=== PATIENT | female | born 1990 | race Caucasian/White ===

== ENCOUNTER → 2021-11-28 10:44 | Outpatient (CLI) | payer OTHER, SELFPAY ==
--- NOTE | 2021-11-28 | DI.US.S_ITS ---
PROCEDURE: US OB >= 14 WEEKS FETUS INDICATIONS: 20 WEEK ANATOMY SCAN OUTSIDE/PRIOR DATING DATA: Last menstrual period (LMP): July 18, 2021. LMP-based estimated date of delivery (AGUSTIN): April 24, 2022. First dating scan (location): [facility]. Estimated date of delivery (AGUSTIN) from first dating scan: April 09, 2022. TECHNIQUE: Real-time scanning was performed of the fetus, with image documentation and biometric measurements. COMPARISON: None. FINDINGS: General: A single living intrauterine gestation is present. Presentation: Transverse maternal right Placenta: Placental position is anterior , without previa. Amniotic fluid index: 10.2 cm, normal range is 5-24 cm. Single deepest vertical pocket is 3.8 cm. heart rate: 145 beats per minute. Maternal cervical canal: 6.5 cm long. Normal lower limit is 2.5 cm. biometrics: Biparietal diameter: 5 cm Head circumference: 19.1 cm Abdominal circumference: 15.5 cm Femur length: 3.5 cm Composite gestational age from present scan: 20 weeks, 1 day Estimated weight: 390 g +/-58 g Anatomic survey: Neuro: Ventricles are non-dilated at less than 10 mm. Cisterna magna is normal at 3-11 mm. Cerebellum is normal in size and morphology. Nuchal skin fold: Normal at less than 6 mm between 14-21 weeks gestational age. Face: Not well seen. Spine: Not well seen. Heart: Not well seen. Diaphragm: Diaphragm is intact. Stomach: Left-sided stomach is present. Kidneys: No hydronephrosis. Normal is less than 5 mm in 2nd trimester, less than 7 mm in 3rd trimester. Cord: 3-vessel cord has orthotopic insertion. Bladder: Normal in size. Extremities: All 4 extremities identified. IMPRESSION: 1. Live single intrauterine gestation as detailed above. Some portions of the anatomy are not well seen. Consider short-term follow-up. We strive to produce accurate, complete, and clear reports of imaging services. To assist us in improving patient care, this report was composed using standard report templates and voice recognition software. Therefore, it may contain abnormal punctuation, insertions and/or omissions. Occasional wrong-word or sound-alike substitutions may occur. Though we review the report and make efforts to correct it, we do recommend that the report be read carefully in proper context to recognize any text inaccuracies. Dictated by: Renato Brumfield M.D. on 11/28/2021 at 13:31 Approved by: Renato Brumfield M.D. on 11/28/2021 at 13:35
== END ==
PROVIDERS: Referring Provider Nurse Practitioner Obstetrics & Gynecology; Visit Provider Nurse Practitioner Obstetrics & Gynecology
DX: Z34.92 Encounter for supervision of normal pregnancy, unspecified, second trimester (principal); Z3A.20 20 weeks gestation of pregnancy
CPT/HCPCS: 76811

== ENCOUNTER → 2021-12-14 10:13 | Outpatient (CLI) | payer OTHER, SELFPAY ==
--- NOTE | 2021-12-14 | DI.US.S_ITS ---
PROCEDURE: US OB FOLLOW UP INDICATIONS: RE-EVALUATE OUTSIDE/PRIOR DATING DATA: Last menstrual period (LMP): 07/18/2021 LMP-based estimated date of delivery (AGUSTIN): 04/24/2022. First dating scan (date and location): 11/28/2021. Estimated date of delivery (AGUSTIN) from first dating scan: 04/09/2022. TECHNIQUE: Real-time scanning was performed of the fetus, with image documentation and biometric measurements. COMPARISON: [facility], OB >= 14 WEEKS FETUS, 11/28/2021, 10:55. FINDINGS: General: A single living intrauterine gestation is present. Presentation: Transverse. Placenta: Placental position is anterior , without previa. Amniotic fluid index: 14.6 cm, normal range is 5-24 cm. heart rate: 133 beats per minute. Maternal cervical canal: 6.3 cm long. Normal lower limit is 2.5 cm. Clinically estimated gestational age: 23 weeks 3 days Normal appearance of the four-chamber heart, cardiac outflow tracts, face and spine. IMPRESSION: Single living IUP redemonstrated and today's exam demonstrating normal appearance of the heart, face and spine. We strive to produce accurate, complete, and clear reports of imaging services. To assist us in improving patient care, this report was composed using standard report templates and voice recognition software. Therefore, it may contain abnormal punctuation, insertions and/or omissions. Occasional wrong-word or sound-alike substitutions may occur. Though we review the report and make efforts to correct it, we do recommend that the report be read carefully in proper context to recognize any text inaccuracies. Dictated by: Bienvenido Lin [facility] Interpreted: Ronny Millan MD on 12/14/2021 at 13:36 Approved by: Ronny Millan M.D. on 12/14/2021 at 14:11
== END ==
PROVIDERS: Referring Provider Nurse Practitioner Obstetrics & Gynecology; Visit Provider Nurse Practitioner Obstetrics & Gynecology
DX: Z36.2 Encounter for other antenatal screening follow-up (principal); Z3A.23 23 weeks gestation of pregnancy
CPT/HCPCS: 76816

== ENCOUNTER → 2022-03-21 19:21 | Outpatient (ROUT) | payer OTHER, SELFPAY | PROVIDERS: Visit Provider Nurse Practitioner Obstetrics & Gynecology | DX: Z34.93 Encounter for supervision of normal pregnancy, unspecified, third trimester (principal); Z36.85 Encounter for antenatal screening for Streptococcus B; Z3A.36 36 weeks gestation of pregnancy | CPT/HCPCS: 87081 ==

== ENCOUNTER 2022-04-09 21:13 | Inpatient (IN) | payer OTHER, SELFPAY ==
--- NOTE | 2022-04-09 21:18 | P.HPOB_ITS ---
OB HPI Date/Time Date of admission: 04/09/22 Date Patient Seen: 04/09/22 Time Patient Seen: 21:18 History of Present Condition Chief complaint: : 2 Para: 1 Estimated Date of Delivery: 04/16/22 Estimated Gestational Age (weeks): 39.0 Narrative: Siena Tse is a 31 year old female @ 39wks 0 days by 10 wk US who presents for evaluation of labor. Contractions started this afternoon and stejonny nicolette progressed in frequency and intensity, now breathing through strong contractions every 3-4 minutes. Had some blood in her discharge earlier this evening. No LOF. care complicated by Fe deficiency anemia for which she received IV iron. Desires low intervention . is present and supportive. Indications Other reason(s) for admission: Term Labor History of Present care: good care, initiated at week # (10), number of visits (9) and pounds weight gain (20) Dating criteria: based on 1st trimester US only Ultrasounds: normal mid trimester US Obstetrical complications: other (anemia) Medical complications: none Preadmission Labs Blood type: A (+) positive -: Antibody screen: negative, GBS status: negative, HBsAG: negative, HIV: negative and RPR/VDLR: negative -: Chlamydia screen: not detected and Gonorrhea screen: not detected -: Rubella: immune and Varicella: immune HCT: 31.1 HCAB: negative PAP: Normal Cell-free DNA: Negative, male 1 hr GTT: 86 Prior (ies) History: 05/16/2016: VAVD @ [id number], epidural, female, 8# 14 oz, traumatic Evaluation Evaluation Baseline heart rate: 120 Variability: Moderate (11-25) monitor accelerations: Absent Monitor Decelerations: Absent Contraction Frequency (minutes): 3 Uterine Contraction Intensity: Strong/Firm Status: Category l Dilation (cm): 7 Effacement (%): 100 Position of cervix: mid Consistency: soft Comments: BBOW PFSH Medical History (Updated 04/09/22 @ 22:47 by Karyn Miranda CNM) Anxiety Biliary colic Family History (Updated 04/09/22 @ 22:48 by Karyn Miranda CNM) Mother Hypothyroid Social History (Updated 04/09/22 @ 22:48 by JENNYFER Brock marital status: household members: spouse and children lives independently: No caregiver/support person: No Meds Home Medications and Allergies Home Medications Medication Instructions Recorded Confirmed Type citalopram 10 mg tablet tab 04/09/22 History Allergies Allergy/AdvReac Type Severity Reaction Status Date / Time No Known Drug Allergies Allergy Verified 02/26/22 12:01 Review of Systems Review of Systems ROS: Yes All systems reviewed with the patient and are negative except as otherwise documented OB Exam Resp Effort & Inspection: normal respiratory effort Auscultation: clear to auscultation bilaterally Cardio Rate: regular rate Rhythm: regular rhythm Heart Sounds: S1 normal and S2 normal Presentation: vertex Objective Labs Result Diagrams: 04/09/22 21:50 Assessment and Plan Assessment and Plan Assessment and Plan narrative: Term primipara Active labor No indication for GBS prophylaxis Anemia Cat I FHR P: Admit, routine orders w/ continuous labor support. May switch to IA. Reassess in 4 hours or sooner, PRN.
[2022-04-09 22:00] LABS: COVID19 -Nasal RAPID Negative (Negative)
[2022-04-09] MEDS: LACTATED RINGERS 1,000 ML 100 ML IV ×2 (22:00→23:22)
[2022-04-09 22:10] LABS: Add Manual Diff / Slide Review NO; Basophils Absolute Auto 100 /uL (0-100); Basophils Percent Auto 0.3 % (0-2); Eosinophils Absolute Auto 100 /uL (0-450); Eosinophils Percent Auto 0.8 % (2-4); Hematocrit 37.2 % (36-46); Hemoglobin 12.7 g/dL (12.0-16.0); Lymphocytes Absolute Auto 3100 /uL (1100-4500); Lymphocytes Percent Auto 18.7 % (25-40); Mean Corpuscular HGB Conc 34.1 % (30-36); Mean Corpuscular Hemoglobin 28.8 PG (26-34); Mean Corpuscular Volume 84.6 fL (80-100); Monocytes Absolute Auto 1300 /uL (0-900); Monocytes Percent Auto 7.7 % (3-14); Neutrophils Absolute Auto 12100 /uL (1500-7000); Neutrophils Percent Auto 72.5 % (50-75); Platelet Count 198 X10^3/uL (150-400); Red Cell Distribution Width 23.8 % (11.6-14.8); White Blood Cell Count 16.6 X10^3/uL (4.5-11.0)
[2022-04-09 23:13] LABS: Anisocytosis 3+
[2022-04-10] MEDS: ONDANSETRON 4 MG/2 ML INJ IV (03:05)
--- NOTE | 2022-04-10 05:02 | P.PCNOB_ITS ---
Events: Meconium Stained Fluid Labor & Delivery Delivery date: 04/10/22 Intrapartal Events: None Cervical ripening method: none Induction method: none Delivery monitor: external FHT and external uterine Route of delivery: Episiotomy description: None L&D Laceration Description: Perineal - 1st Degree Delivery repair: chromic (3.0) Estimated blood loss (mL): 50 Quantitative Blood Loss: 50 Anesthesia Type: Epidural Narrative: Patient labored well with an epidural. SROM for thick meconium stained fluid at 0304. Upon routine exam was found to be C/C/+2. Patient pushed well with coaching and encouragement. RT was called to standby for the . NSVB of a vigorous baby girl in boy position. Sommersaulted through a single loose nuchal cord. The shoulders required manual reduction of th eposterior arm for delivery with 90 seconds between delivery of head and delivery of the body. was placed on maternal abdomen for drying and skin to skin. Apgars 8/9. 30units of pitocin in 500ml LR was started at 250mL/hr for AMTSL. After cessation of pulsation, the cord was double clamped by CNM and cut by FOB. Cord blood sample was collected. Gentle cord traction and single maternal push led to spontaneous, Schultze delivery of an apparently intact placenta, membranes and 3VC. Fundus immediately firm and bleeding minimal. Inspection revealed a 1st degree perineal laceration, repaired with 3.0 chromic in the usual fashion under adequate epidural anesthesia. QBL 50mL. Both mother and baby stable and skin to skin as I left the room. [place] Baby 1: gender: Male Presentation: vertex Position: Right Occiput Anterior Placenta delivery description: Spontaneous Cord Vessel Description: 3 Vessels, Nuchal Cord and Loose score (1 min): 8 score (5 min): 9 weight: 4.143 kg Plan for aftercare: Routine care
[2022-04-10] MEDS: KETOROLAC 30 MG/ML VIAL IV (07:24)
[2022-04-10] MEDS: ACETAMINOPHEN 325 MG TABLET 650 MG PO ×2 (14:08→21:52)
[2022-04-10] MEDS: IBUPROFEN 600 MG TABLET PO ×2 (14:08→21:52)
--- NOTE | 2022-04-10 21:01 | PM.OBPN.1 ---
Subjective - OB Subjective Narrative: Day of delivery s/p NSVB with 1st degree perineal laceration. Was unable to void for 6 hours after with bladder scan revealing 1L urine. Colunga catheter was placed with plan to remain in for 12 hours. Ambulating and independently. Tolerating a general diet. Pain is minimal and well controlled w/ PO medication. Bleeding is moderate, without clots. Date Patient Seen: 04/10/22 Time Patient Seen: 21:04 Exam Vital Signs (past 8 hours): BP 94/51mmHg, HR 83bpm, T 99.1F Temporal Other: Fundus firm @ U, lochia light to moderate, no clots. Perineum well approximated. Objective Labs Result Diagrams: 04/09/22 21:50 Labs: Laboratory Results - last 24 hr 04/09/22 04/09/22 04/09/22 21:40 21:50 21:50 WBC 16.6 H RBC 4.40 Hgb 12.7 Hct 37.2 MCV 84.6 MCH 28.8 MCHC 34.1 RDW 23.8 H Plt Count 198 Neut % (Auto) 72.5 Lymph % (Auto) 18.7 L [place] % (Auto) 7.7 Eos % (Auto) 0.8 L Baso % (Auto) 0.3 Neut # (Auto) 61378 H Lymph # (Auto) 3100 [place] # (Auto) 1300 H Eos # (Auto) 100 Baso # (Auto) 100 RBC Morphology See below Anisocytosis 3+ H SARS-CoV-2 (PCR) Negative Blood Type A Positive Antibody Screen Negative Assessment & Plan Assessment and Plan (1) First degree perineal laceration during delivery: Start date: 04/10/22 Status: Acute (2) Urinary retention: Start date: 04/10/22 Status: Acute Plan day: 1 plan OB: routine care Comments: D/C Colunga after 12 hours and monitor voiding, per protocol Time Spent With Patient Time: Total time spent is greater than 50% in coordination of care (as documented) at patient's floor/unit and/or counseling patient: Time with patient: 15-24 minutes
[2022-04-10] MEDS: CITALOPRAM 10 MG TABLET PO (21:20)
[2022-04-11] MEDS: IBUPROFEN 600 MG TABLET PO (05:38)
[2022-04-11] MEDS: ACETAMINOPHEN 325 MG TABLET 650 MG PO (05:39)
--- NOTE | 2022-04-11 07:59 | P.DS_ITS ---
Discharge Providers Provider Date of admission: 04/09/22 21:13 Discharge Date: 04/11/22 Consults: 04/11/22 04:40 Consult to Business Services Sales Agent Routine Comment: Discharge provider: Karyn Miranda CNM Summary Hospital Course Date Patient Seen: 04/11/22 Time Patient Seen: 07:59 Diagnoses: Normal vaginal w/ 1st degree perineal laceration Urinary retention, resolved Hospital Course: PPD1 s/p NSVB w/ 1st degree perinel laceration: Initial urinary retention managed with Colunga catheter x 12 hours, patient has voided x3 since removal. Now voiding, ambulating and independently. Tolerating a general diet. Minimal pain, well controlled w/ PO medication. Vaginal bleeding is small without clots. remains present and supportive. Both are eager for discharge to home today, feeling ready to take their son home. Peripartum Data Infant Delivery Method: Natural Vaginal Laceration Description: Perineal - 1st Degree Episiotomy description: None Procedures: O70.0 complications: none Discharge Diagnosis (1) First degree perineal laceration during delivery: Status: Acute Problem Details: routine course (2) Urinary retention: Status: Acute Problem Details: resolved Status at Discharge Overall status at discharge: patient is progressing back to baseline Time Spent with Patient Time attestation: Total time spent providing and/or coordinating discharge services: Time spent: Less than 30 minutes Specific discharge activities: routine teaching Objective Labs Result Diagrams: 04/09/22 21:50 Exam Vital Signs (past 8 hours): BP 112/73mmhg, HR 82bpm, RR 16/min, T 97.1F Temporal Other: Fundus firm @ U-2, lochia scant, perineum well approximated. Discharge Plan Discharge Plan Patient Disposition: Home Discharge orders & Medications Prescriptions: New ibuprofen 600 mg Tablet 600 mg PO Q6HR PRN (Reason: Pain, Mild (1-3)) 14 Days Qty: 60 0RF Continued citalopram 10 mg tablet Label Comments: Take 1 tablet By Mouth once a day Diet/Activity/Treatments Diet: Diet as Tolerated Activity: pelvic rest x 6 weeks Skin/Wound/Dressing Care Report to your healthcare provider any signs of infection, such as:: chills, fever, increased pain, unusual drainage and unusual redness Visit Report/Discharge Packet Instructions: Depression
[2022-04-11 08:35] VITALS: BP 112/72
[2022-04-11] MEDS: DERMOPLAST SPRAY 20% 60 ML 1 SPRAY TOP (09:04)
--- NOTE | 2022-04-11 09:33 | PM.OBPNLAB ---
Date/Time Date Patient Seen: 04/11/22 Time Patient Seen: 09:33 Pain Control Pain control: tolerating well Comments: Pt able to sleep intermittently through the night. Last BP 149/93. FHR cat 1. Reports mild PINEDA which feels typical for her, minimal relief with tylenol. Mild nausea but able to tolerate PO this morning. Cervidil removed 0900. Cervical exam 0cm/40%/-3. Discussed need for cytotec, orders placed, reassess in 8 hrs. VS: BP 149/93mmHg, HR 78bpm, RR 18/min, T 35.8C Temporal, SpO2 97% on RA Pelvic Exam Dilation (cm): 0 Effacement (%): 40 station: -3 Amniotic membrane status: Intact Contractions Pitocin rate (mU/min): 0 Contraction intensity: Strong/Firm Status status: Category l
[2022-04-11 10:07] VITALS: BP 110/56; PULSE 69; RESP 16; TEMP 36.3
== END 2022-04-11 12:15 | disposition home or self-care (01) | DRG 807 ==
PROVIDERS: Admitting Provider Nurse Practitioner Obstetrics & Gynecology; Referring Provider Nurse Practitioner Obstetrics & Gynecology; Visit Provider Nurse Practitioner Obstetrics & Gynecology
DX: O99.02 Anemia complicating childbirth (principal); Z37.0 Single live birth; Z3A.39 39 weeks gestation of pregnancy; D50.9 Iron deficiency anemia, unspecified; O70.0 First degree perineal laceration during delivery; O69.81X0 Labor and delivery complicated by cord around neck, without compression, not applicable or unspecified; O77.0 Labor and delivery complicated by meconium in amniotic fluid; R33.9 Retention of urine, unspecified
CPT/HCPCS: 01967; 36415; 59050; 85025; 86850; 86900; 86901; 87635; C9803; G0379; J1885; J2405

== ENCOUNTER 2023-01-09 18:37 | Emergency (ER) | payer OTHER, SELFPAY ==
[2023-01-09 18:42] VITALS: BP 121/91; PULSE 67; RESP 18; TEMP 36.9; O2SAT 98; BMI 25.0
--- NOTE | 2023-01-09 19:33 | ED.PSYCH ---
HPI - Psych General Chief Complaint: Psychiatric Symptoms Stated Complaint: SUICIDAL THOUGHTS Time Seen by Provider: 01/09/23 19:19 Source: patient Mode of arrival: Ambulatory History of Present Illness HPI Narrative: 32-year-old female nonsmoker with history of anxiety and depression presents for evaluation of increasing anxiety, depression and suicidal thoughts. She states she primarily is triggered by her and feels anger towards him and very much unsupported by him. She states that he tells her that she should be stronger than she is and should not be so weak as to require assistance and should just be able to figure out her problems. She does have history of prior suicidal ideation and when she was a teenager was involved in self-harm. She denies street drugs but does use occasional alcohol. She has had some exposure to a mental health provider in the community and had been taking Celexa but no longer does Related Data Home Medications Medication Instructions Recorded Confirmed citalopram 10 mg tablet tab 04/09/22 Allergies Allergy/AdvReac Type Severity Reaction Status Date / Time No Known Drug Allergies Allergy Verified 02/26/22 12:01 Review of Systems Review of Systems Narrative: GENERAL: Denies chills, fatigue, malaise, fever, sweats. HEENT: Denies sinus pain, ear pain, sore throat, difficulty swallowing, dizziness. RESPIRATORY: Denies dyspnea, cough, wheezing, hemoptysis, sputum. CARDIOVASCULAR: Denies chest pain, palpitations, orthopnea, edema, GASTROINTESTINAL: Denies nausea, vomiting, abdominal pain, diarrhea, constipation, melena. : Denies dysuria, frequency, incontinence, hematuria, urinary retention. MUSCULOSKELETAL: denies weakness, joint pain, or bony pain SKIN: Denies rash, skin lesions, or other NEUROLOGIC: Denies weakness, headache, numbness, change in speech, confusion, seizures, incoordination. PSYCHIATRIC: See HPI 12 point review of systems is negative except for those stated above Patient History Medical History Anxiety Biliary colic Family History Mother Hypothyroid Social History marital status: household members: spouse and children lives independently: No caregiver/support person: No Smoking Status: Never smoker Smoking Status: Never smoker Exam Narrative Exam Narrative: GENERAL: 32[] year old patient appears stated age. Well-developed patient, in mild distress. Tearful HEAD: Atraumatic. Normocephalic. EYES: Pupils equal round and reactive. Extraocular motions intact. No scleral icterus. No injection or drainage. ENT: Nose without bleeding, purulent drainage. Throat without erythema, tonsillar hypertrophy or exudate. Airway patent. NECK: Trachea midline. Non tender CARDIOVASCULAR: Regular rate and rhythm without murmurs, gallops, or rubs. RESPIRATORY: Clear to auscultation. Breath sounds equal bilaterally. No wheezes, rales, or rhonchi. GASTROINTESTINAL: Abdomen soft, non-tender, nondistended. EXTREMITIES: No edema or joint tenderness. BACK: Nontender without deformity or crepitance. No flank tenderness. NEURO: AOx3. SKIN: No rash or erythema of visible areas Initial Vital Signs Initial Vital Signs: Vital Signs Temperature 98.5 F 01/09/23 18:42 Pulse Rate 67 01/09/23 18:42 Respiratory Rate 18 01/09/23 18:42 Blood Pressure 121/91 H 01/09/23 18:42 Pulse Oximetry 98 01/09/23 18:42 Oxygen Delivery Method Room Air 01/09/23 18:42 Course Orders Ordered: ED Orders 01/09/23 22:25 Acetaminophen Stat Complete Blood Count AUTO DIFF Stat Comprehensive Metabolic Panel Stat Ethanol (ETOH) Stat Free T4, Direct Thyroxine Stat Salicylate Stat Thyroid Stimulating Hormone Stat Consultations Consultation #1: Patient seen and evaluated by social work professor, please see their note for details of the encounter Vital Signs Vital signs: Vital Signs - 8 hr 01/10/23 01:54 Pulse Rate 95 H Respiratory Rate 22 Blood Pressure 110/70 Pulse Oximetry 100 Oxygen Delivery Method Room Air MDM - Psych Lab Data 01/09/23 22:25 01/09/23 22:25 Labs: Lab Results 01/09/23 01/09/23 01/09/23 Range/Units 19:35 19:35 22:25 WBC 8.8 (4.5-11.0) X10^3/uL RBC 4.80 (4.0-5.2) X10^6/uL Hgb 14.1 (12.0-16.0) g/dL Hct 41.4 (36-46) % MCV 86.3 (80-100) fL MCH 29.4 (26-34) PG MCHC 34.0 (30-36) % RDW 13.5 (11.6-14.8) % Plt Count 277 (150-400) X10^3/uL Neut % (Auto) 71.1 (50-75) % Lymph % (Auto) 20.4 L (25-40) % [place] % (Auto) 7.0 (3-14) % Eos % (Auto) 1.2 L (2-4) % Baso % (Auto) 0.3 (0-2) % Neut # (Auto) 6300 (6720-8154) /uL Lymph # (Auto) 1800 (7990-7250) /uL [place] # (Auto) 600 (0-900) /uL Eos # (Auto) 100 (0-450) /uL Baso # (Auto) 0 (0-100) /uL Sodium (137-145) mmol/L Potassium (3.4-5.1) mmol/L Chloride (98-107) mmol/L Carbon Dioxide (22-32) mmol/L BUN (7-17) mg/dL Creatinine (0.52-1.04) mg/dL Estimated GFR (>60) mL/min BUN/Creatinine Ratio (6-22) Glucose (70-100) mg/dL Calcium (8.4-10.2) mg/dL Total Bilirubin (0.2-1.3) mg/dL AST (14-36) IU/L ALT (<35) IU/L Alkaline Phosphatase (38-126) U/L Total Protein (6.3-8.2) g/dL Albumin (3.5-5.0) g/dL Globulin (1.7-4.1) g/dL Albumin/Globulin Ratio (1.0-2.8) TSH (0.47-4.68) uIU/mL Free T4 (0.78-2.19) ng/dL Urine RBC None seen (0-5/HPF) Urine WBC 1-5/hpf (0-5/HPF) Ur Squamous Epith Cells 0-1 /hpf (0-5/HPF) Amorphous Sediment 1+ Urine Bacteria Few (2-10) H (None) Ur Culture Indicated? Cult not indicated Salicylates (<20) mg/dL U Opiates 300ng/mL cut Negative (Negative) Ur Oxycodone Screen Negative (Negative) Urine Methadone Screen Negative (Negative) Acetaminophen (10-30) ug/mL Ur Barbiturates Screen Negative (Negative) U Tricyclic Antidepress Negative (Negative) Ur Phencyclidine Scrn Negative (Negative) Ur Amphetamines Screen Negative (Negative) U Methamphetamines Scrn Negative (Negative) Ur MDMA Scrn (Ecstasy) Negative (Negative) U Benzodiazepines Scrn Negative (Negative) Urine Cocaine Screen Negative (Negative) U Marijuana (THC) Screen Negative (Negative) Ethyl Alcohol ( - 10) mg/dL 01/09/23 01/09/23 Range/Units 22:25 22:25 WBC (4.5-11.0) X10^3/uL RBC (4.0-5.2) X10^6/uL Hgb (12.0-16.0) g/dL Hct (36-46) % MCV (80-100) fL MCH (26-34) PG MCHC (30-36) % RDW (11.6-14.8) % Plt Count (150-400) X10^3/uL Neut % (Auto) (50-75) % Lymph % (Auto) (25-40) % [place] % (Auto) (3-14) % Eos % (Auto) (2-4) % Baso % (Auto) (0-2) % Neut # (Auto) (9980-5057) /uL Lymph # (Auto) (7830-2549) /uL [place] # (Auto) (0-900) /uL Eos # (Auto) (0-450) /uL Baso # (Auto) (0-100) /uL Sodium 138 (137-145) mmol/L Potassium 4.0 (3.4-5.1) mmol/L Chloride 104 (98-107) mmol/L Carbon Dioxide 28 (22-32) mmol/L BUN 11 (7-17) mg/dL Creatinine 0.58 (0.52-1.04) mg/dL Estimated GFR > 60 (>60) mL/min BUN/Creatinine Ratio 19.0 (6-22) Glucose 97 (70-100) mg/dL Calcium 9.0 (8.4-10.2) mg/dL Total Bilirubin 0.4 (0.2-1.3) mg/dL AST 19 (14-36) IU/L ALT 16 (<35) IU/L Alkaline Phosphatase 75 (38-126) U/L Total Protein 7.4 (6.3-8.2) g/dL Albumin 4.4 (3.5-5.0) g/dL Globulin 3.0 (1.7-4.1) g/dL Albumin/Globulin Ratio 1.5 (1.0-2.8) TSH 0.604 (0.47-4.68) uIU/mL Free T4 0.82 (0.78-2.19) ng/dL Urine RBC (0-5/HPF) Urine WBC (0-5/HPF) Ur Squamous Epith Cells (0-5/HPF) Amorphous Sediment Urine Bacteria (None) Ur Culture Indicated? Salicylates < 1.0 (<20) mg/dL U Opiates 300ng/mL cut (Negative) Ur Oxycodone Screen (Negative) Urine Methadone Screen (Negative) Acetaminophen < 10 (10-30) ug/mL Ur Barbiturates Screen (Negative) U Tricyclic Antidepress (Negative) Ur Phencyclidine Scrn (Negative) Ur Amphetamines Screen (Negative) U Methamphetamines Scrn (Negative) Ur MDMA Scrn (Ecstasy) (Negative) U Benzodiazepines Scrn (Negative) Urine Cocaine Screen (Negative) U Marijuana (THC) Screen (Negative) Ethyl Alcohol < 10 ( - 10) mg/dL Point of Care Testing Test Results Negative Urine Dip Bedside Urine Glucose Negative Bedside Urine Bilirubin - Negative Bedside Urine Ketone - Negative Urine Specific [place] 1.010 Bedside Urine Occult Blood - Negative Bedside Urine pH 8.0 Bedside Urine Protein + 30 Bedside Urine Urobilinogen - Negative Bedside Urine Nitrite - Negative Bedside Urine Leukocytes - Negative Esterase MDM Narrative Medical decision making narrative: Later in the evening the patient stated that she requested discharge. She no longer was interested in waiting for social work to help with possible placement. She is awake and alert, speaking clearly in able to demonstrate capacity to make her own decisions. She is no longer feeling suicidal and is able to contract for safety. She states that she is already asked her to lock up the firearms and is familiar with the crisis line. She states that she feels like being here will make her symptoms worse. Her is currently texting her pictures of her child crying, stating that she hopes she will enjoy her vacation and that she should be tougher. I had a lengthy discussion with her the bedside and sure the opinion that she has become increasingly stable and that being away from her children while this is happening seems to be making things worse for her. She understands that she may return when things stabilize at home or at any point when she would like our help. Discharge Plan Departure Patient Disposition: Home Clinical Impression: Suicidal ideation Instructions: DI for Suicidal Ideation-Adult Activity Restrictions/Additional Instructions: *If you feel that you are entering into mental health crisis you have multiple options 1. Return to the ER immediately 2. Call the Crisis Line at [phone] 3. Send an anonymous text by sending the word Marianela to [phone] 4. Navigate your web browser to [employer] to engage in anonymous chat with a mental health worker Prescriptions: No Action citalopram 10 mg tablet Patient Comments: Take 1 tablet By Mouth once a day Stand Alone Forms: Patient Portal/API
[2023-01-09 20:15] LABS: UR Morphine/Opiate cutoff 300 Negative (Negative); Ur Creatinine Normal (Normal); Ur Specific Gravity Normal (Normal); Urine Amphetamines Negative (Negative); Urine Barbiturates Negative (Negative); Urine Benzodiazepines Negative (Negative); Urine Cocaine Negative (Negative); Urine MDMA Negative (Negative); Urine Methadone Negative (Negative); Urine Methamphetamines Negative (Negative); Urine Phencyclidine Negative (Negative); Urine Tetrahydrocannabinol Negative (Negative); Urine Tricyclic Antidepressant Negative (Negative); Urine pH Normal (Normal)
[2023-01-09 20:16] LABS: Urine Oxycodone Negative (Negative)
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
[2023-01-09 20:39] LABS: Amorphous Sediment Urine 1+; Bacteria Urine Few (2-10); Culture Indicated Urine Cult Not Indicated; RBC Urine None Seen (0-5/HPF); Squamous Epithelial Cell Urine 0-1 /HPF (0-5/HPF); WBC Urine 1-5/HPF (0-5/HPF)
[2023-01-09 22:52] LABS: Add Manual Diff / Slide Review NO; Basophils Absolute Auto 0 /uL (0-100); Basophils Percent Auto 0.3 % (0-2); Eosinophils Absolute Auto 100 /uL (0-450); Eosinophils Percent Auto 1.2 % (2-4); Hematocrit 41.4 % (36-46); Hemoglobin 14.1 g/dL (12.0-16.0); Lymphocytes Absolute Auto 1800 /uL (1100-4500); Lymphocytes Percent Auto 20.4 % (25-40); Mean Corpuscular Hemoglobin 29.4 PG (26-34); Mean Corpuscular Volume 86.3 fL (80-100); Monocytes Absolute Auto 600 /uL (0-900); Neutrophils Absolute Auto 6300 /uL (1500-7000); Neutrophils Percent Auto 71.1 % (50-75); Platelet Count 277 X10^3/uL (150-400); Red Cell Distribution Width 13.5 % (11.6-14.8); White Blood Cell Count 8.8 X10^3/uL (4.5-11.0)
[2023-01-09 23:02] LABS: Acetaminophen < 10 ug/mL (10-30); Alanine Aminotransferase 16 IU/L (<35); Albumin 4.4 g/dL (3.5-5.0); Albumin Globulin Ratio 1.5 (1.0-2.8); Alkaline Phosphatase 75 U/L (38-126); Aspartate Aminotransferase 19 IU/L (14-36); Bilirubin Total 0.4 mg/dL (0.2-1.3); Blood Urea Nitrogen 11 mg/dL (7-17); Carbon Dioxide 28 mmol/L (22-32); Chloride 104 mmol/L (98-107); Estimated Glomerular Filt Rate > 60 mL/min (>60); Ethanol (ETOH) < 10 mg/dL; Glucose 97 mg/dL (70-100); HEMOLYSIS < 15 (0-50); Salicylate < 1.0 mg/dL (<20); Sodium 138 mmol/L (137-145); Total Protein 7.4 g/dL (6.3-8.2)
[2023-01-09 23:18] LABS: Free T4, Direct Thyroxine 0.82 ng/dL (0.78-2.19)
[2023-01-09 23:32] LABS: Thyroid Stimulating Hormone 0.604 uIU/mL (0.47-4.68)
[2023-01-10 01:54] VITALS: BP 110/70; PULSE 95; RESP 22; O2SAT 100
== END 2023-01-10 01:55 | disposition home or self-care (01) ==
PROVIDERS: Emergency Provider Emergency Medicine
DX: R45.851 Suicidal ideations (principal)
CPT/HCPCS: 36415; 80053; 80305; 80320; 80329; 81003; 81015; 81025; 84439; 84443; 85025; 87086; 99284; G0480